=== PATIENT | male | born 1990 | race African-American/Black ===

== ENCOUNTER 2018-04-19 08:26 | Day surgery (SDC) | payer BC ==
[2018-04-19] MEDS ORDERED: SOD CHLORIDE 0.9% 1,000 ML IV (10:00)
[2018-04-19] MEDS ORDERED: BUPIVACAINE 0.25% (MPF) 30 ML INJ (11:51)
[2018-04-19] MEDS ORDERED: FENTAnyl 50 MCG/ML VIAL (11:53)
[2018-04-19] MEDS ORDERED: PROPOFOL 20 ML (11:53)
[2018-04-19] MEDS ORDERED: LIDOCAINE 2% (SDV) 5 ML INJ (11:53)
[2018-04-19] MEDS ORDERED: EPHEDrine SULFATE 50 MG/5 ML SYG IV (12:00)
[2018-04-19] MEDS ORDERED: hydrALAzine 20 MG INJ IV (12:00)
[2018-04-19] MEDS ORDERED: FENTAnyl 50 MCG/ML VIAL IV ×3 (12:00)
[2018-04-19] MEDS ORDERED: OXYCODONE/ACETAMINOPHEN (5/325) TAB PO ×2 (12:00)
[2018-04-19] MEDS ORDERED: ONDANSETRON 4 MG INJ IV (12:00)
[2018-04-19] MEDS ORDERED: CEFAZOLIN 1 GM INJ (12:00)
[2018-04-19] MEDS ORDERED: LABETALOL HCL 20MG INJ IV (12:00)
[2018-04-19] MEDS ORDERED: HYDROmorphONE 1 MG/5 ML IV SYRINGE IV ×3 (12:00)
[2018-04-19] MEDS ORDERED: DIPHENHYDRAMINE 50 MG INJ IV (12:00)
[2018-04-19] MEDS ORDERED: MIDAZOLAM 1 MG/ML 2 ML INJ IV (12:00)
[2018-04-19] MEDS ORDERED: MEPERIDINE 25 MG INJ IV (12:00)
[2018-04-19] MEDS ORDERED: METOCLOPRAMIDE 10 MG INJ IV (12:00)
[2018-04-19] MEDS ORDERED: ONDANSETRON 4 MG INJ (12:07)
[2018-04-19] MEDS: BUPIVACAINE 0.25% (MPF) 30 ML INJ (12:33)
[2018-04-19] MEDS ORDERED: BACITRACIN/POLYMYXIN 28.35 GM OINT TOP (12:43)
[2018-04-19] MEDS ORDERED: NALOXONE (0.4 MG/ML) INJ (12:57)
[2018-04-19] MEDS ORDERED: HYDROCODONE/APAP (5/325) TAB PO (13:00)
[2018-04-19] MEDS: CEFAZOLIN 2 GM/50 ML (PMX) 50 ML IVPB (13:05)
== END 2018-04-19 14:22 | disposition home or self-care (01) ==
LOC: SDS 08:26
DX: D23.4 Other benign neoplasm of skin of scalp and neck (principal)
CPT/HCPCS: 14021; 88307